=== PATIENT | male | born 1995 | race Caucasian/White ===

== ENCOUNTER 2018-01-22 20:41 | Emergency (ER) | payer MEDICAID, OTHER ==
[2018-01-22 21:03] VITALS: TEMP 100.5
[2018-01-22] MEDS ORDERED: CIPROFLOXACIN 500 MG TAB PO ONE (21:16)
[2018-01-22] MEDS ORDERED: SULFA/TRIMETH 800/160 (DS) TAB 1 EA TAB PO ONE (21:16)
--- NOTE | 2018-01-22 21:19 | ED.PDOC ---
History of Present Illness - General Chief Complaint: Skin/Abrasion/Tear Stated Complaint: sore on sole of foot, Rt Time Seen by Provider: 01/22/18 20:44 Source: patient Exam Limitations: no limitations - History of Present Illness Initial Comments: the patient is a 22-year-old male presenting to emergency room secondary to 2 blisters that formed on the plantar aspect of his right foot. The first blister started 2 weeks ago and ruptured about a week ago the second blisters started just proximal to it and does have extending erythema. The blister is fairly thick. No other blisters on his body. No oral lesions. Erythema extends around medial aspect of the foot. No obvious abscess otherwise. He is neurovascularly intact. Timing/Duration: other - 2weeks Severity: moderate Improving Factors: nothing Worsening Factors: nothing Associated Symptoms: denies symptoms Allergies/Adverse Reactions: Allergies NO KNOWN ALLERGY Allergy (Verified 01/22/18 20:55) Home Medications: Ambulatory Orders Ciprofloxacin [Cipro] 500 mg PO BID #20 tab 01/22/18 Sulfa/Trimeth 800/160 (Ds) Tab [Bactrim DS Tab] 1 ea PO BID #20 tab 01/22/18 Review of Systems - Review of Systems Constitutional: States: no symptoms reported EENTM: States: no symptoms reported Respiratory: States: no symptoms reported Cardiology: States: no symptoms reported Gastrointestinal/Abdominal: States: no symptoms reported Genitourinary: States: no symptoms reported Musculoskeletal: States: no symptoms reported Skin: States: see HPI Neurological: States: no symptoms reported Endocrine: States: no symptoms reported All other Systems: No Change from Baseline Past Medical History (General) - Patient Medical History Hx Seizures: No Hx Stroke: No Hx Dementia: No Hx Asthma: No Hx of COPD: No Hx Cardiac Disorders: No Hx Congestive Heart Failure: No Hx Pacemaker: No Hx Hypertension: No Hx Thyroid Disease: No Hx Diabetes: No Hx Gastroesophageal Reflux: No Hx Renal Disease: No Hx Cancer: Yes - Rt groin Hx of HIV: No Hx MRSA: No Surgical History: appendectomy, tonsillectomy - Vaccination History Hx Tetanus, Diphtheria Vaccination: Yes Hx Influenza Vaccination: No Hx Pneumococcal Vaccination: No - Social History Hx Tobacco Use: Yes Hx Alcohol Use: Yes - occ - Triage Comment ED Triage Comment: REport having a "sore" on his right foot. States the first one came up about 5 days ago, and he "popped" the blister and has been cleaning it. Yesterday another sore came up, and is causing some pain. 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 Pt has a blistered whelp, 3cm circumference with 6cm streaking up lateral aspect of foot Family Medical History - Family History Father Family History: Unknown Physical Exam - Physical Exam General Appearance: Alert, Comfortable, No apparent distress Eye Exam: bilateral normal Ears, Nose, Throat: normal ENT inspection, normal pharynx Neck: full range of motion, supple Respiratory: no respiratory distress, no accessory muscle use Cardiovascular/Chest: normal peripheral pulses, no edema Peripheral Pulses: dorsalis pedis,right: 2+, dorsalis pedis,left: 2+, posterior tibialis,right: 2+, posterior tibialis,left: 2+ Rectal Exam: deferred Extremity: normal range of motion, no pedal edema, no calf tenderness, normal capillary refill Neurologic: licensed weigher II-XII nml as tested, alert, normal mood/affect, oriented x 3 Skin Exam: normal color - with the exception of the blisters to the right foot Comments: Vital Signs - 24 hr 01/22/18 20:55 Temperature 100.5 F H Pulse Rate [ 89 left] Respiratory 20 Rate Blood Pressure 127/72 [left] O2 Sat by Pulse 97 Oximetry Progress - Progress Progress: 01/22/18 21:24 the patient is a 22-year-old male presenting to emergency room secondary to blister formation to the plantar aspect of his right foot that appeared to be infected. The initial blister is already ruptured and drained however the second one has not. It is cleaned with alcohol swabs and then opened with a scalpel. A sterile culture is taken. The patient is going to be placed on Bactrim and Cipro for 10 days with the first dose given tonight. He has taken a photo of the area and he can use this to make sure that the redness is not worsening. He does have a mild low-grade fever. I would like him to follow up with his primary care doctor in a couple of days for reevaluation. He needs to wash the area couple times daily with an antibacterial soap and water. He can cover the area with a large Band-Aid and Neosporin. ER warnings are given for any significant worsening. Departure - Departure Clinical Impression: Cellulitis of foot without toes Disposition: Discharge to Home or Self Care Condition: Fair Departure Forms: ED Discharge - Pt. Copy, Patient Portal Self Enrollment Instructions: DI for Wound Infection Diet: regular diet Activity: increase activity as tolerated Prescriptions: Ciprofloxacin [Cipro] 500 mg PO BID #20 tab Sulfa/Trimeth 800/160 (Ds) Tab [Bactrim DS Tab] 1 ea PO BID #20 tab Home Medications: Ambulatory Orders Ciprofloxacin [Cipro] 500 mg PO BID #20 tab 01/22/18 Sulfa/Trimeth 800/160 (Ds) Tab [Bactrim DS Tab] 1 ea PO BID #20 tab 01/22/18 Additional Instructions: the patient is a 22-year-old male presenting to emergency room secondary to blister formation to the plantar aspect of his right foot that appeared to be infected. The initial blister is already ruptured and drained however the second one has not. It is cleaned with alcohol swabs and then opened with a scalpel. A sterile culture is taken. The patient is going to be placed on Bactrim and Cipro for 10 days with the first dose given tonight. He has taken a photo of the area and he can use this to make sure that the redness is not worsening. He does have a mild low-grade fever. I would like him to follow up with his primary care doctor in a couple of days for reevaluation. He needs to wash the area couple times daily with an antibacterial soap and water. He can cover the area with a large Band-Aid and Neosporin. ER warnings are given for any significant worsening.
[2018-01-22 21:33] VITALS: BP 123/72; O2SAT 99
== END 2018-01-22 21:32 | disposition home or self-care (01) ==
LOC: ER 20:41
DX: L03.116 Cellulitis of left lower limb (principal); Z85.89 Personal history of malignant neoplasm of other organs and systems; Z87.891 Personal history of nicotine dependence